=== PATIENT | female | born 1980 | race Caucasian/White ===

== ENCOUNTER 2017-04-22 18:44 | Emergency (ER) | payer BC ==
[~2017-04-22] VITALS: Ht 162.6 cm; Wt 76.2 kg
[2017-04-22 18:50] VITALS: BP_SYST 139
--- NOTE | 2017-04-22 19:04 | NUR ---
Patient to ER bed 07 to gown for evaluation. Side rails up. Report GIVEN TO BRANDT DEAL
--- NOTE | 2017-04-22 19:20 | NUR ---
PT IN BED 7 WITH C/O FACIAL SWELLING S/P TAKING LEVOFLOXIN DR GARBER AWARE.
[2017-04-22] MEDS ORDERED: methylPREDNISolone SOD SUCC/PF 62.5 MG/ML VIAL IVP ONE (19:45)
[2017-04-22] MEDS ORDERED: NACL 0.9% 1,000 ML IV ONE (19:45)
[2017-04-22] MEDS ORDERED: FAMOTIDINE PF 20 MG/2 ML VIAL IVP ONE (19:45)
[2017-04-22] MEDS ORDERED: DIPHENHYDRAMINE INJ 50 MG/ML VIAL IVP ONE (19:45)
--- NOTE | 2017-04-22 19:45 | NUR ---
ER at bedside examining patient.
[2017-04-22 20:04] LABS: EOSINOPHILS # (AUTO) 0.2 K/uL (0.0-0.4); EOSINOPHILS % (AUTO) 2.4 % (0.0-4.0); HEMATOCRIT 42.3 % (36-48); HEMOGLOBIN 14.1 g/dL (12.0-16.0); LYMPHOCYTES # (AUTO) 2.3 K/uL (1.0-5.5); MEAN CORPUSCULAR HEMOGLOBIN 31 pg (27-31); MEAN CORPUSCULAR HGB CONC 33 % (32-36); MEAN CORPUSCULAR VOLUME 92 fL (79.0-98.0); MONOCYTES # (AUTO) 0.6 K/uL (0.0-1.0); MONOCYTES % (AUTO) 7.8 % (1.7-9.3); PLATELET COUNT (AUTO) 475 K/uL (130-430); RED BLOOD CELL COUNT(AUTO) 4.63 MIL/uL (4.2-6.2); RED CELL DISTRIBUTION WIDTH 11.9 % (9.0-15.0); WHITE BLOOD COUNT (AUTO) 7.7 K/uL (4.8-10.8)
[2017-04-22 20:07] LABS: BASOPHILS % (AUTO) 0.2 % (0.0-2.0); NEUTROPHILS # (AUTO) 4.6 K/uL (1.8-7.7); NEUTROPHILS % (AUTO) 59.6 % (40.0-70.0)
[2017-04-22 20:17] LABS: CALCIUM 9.1 mg/dL (8.4-11.0); CREATININE 0.67 mg/dL (0.55-1.30); POTASSIUM 3.8 mmol/L (3.5-5.1)
[2017-04-22 20:21] LABS: ALBUMIN 4.1 g/dL (3.4-4.8); TOTAL BILIRUBIN 1.3 mg/dL (0.0-1.0)
--- NOTE | 2017-04-22 21:00 | NUR ---
PT STATES SHE IS FEELING BETTER , DR GARBER AWARE.
[2017-04-22 22:23] VITALS: BP_SYST 123
--- NOTE | 2017-04-22 22:25 | NUR ---
Patient given written and verbal discharge instructions and verbalizes understanding. ER MD discussed with patient the results and treatment provided. Patient in stable condition. ID arm band removed. IV catheter removed intact and dressing applied, no active bleeding. Rx of PREDNISONE given. Patient educated on pain management and to follow up with PMD. Pain Scale 0/10. Opportunity for questions provided and answered.
== END 2017-04-22 22:23 | disposition home or self-care (01) ==
LOC: SED 18:44
DX: T36.8X5A Adverse effect of other systemic antibiotics, initial encounter (principal); Z88.1 Allergy status to other antibiotic agents; X58.XXXA Exposure to other specified factors, initial encounter
CPT/HCPCS: 36415; 80053; 85025; 96361; 96374; 96375; 99285; J1200; J2930; J3490; J7030